=== PATIENT | female | born 1945 | race Caucasian/White ===

== ENCOUNTER 2018-09-24 00:13 | Emergency (ER) | payer OTHER ==
[2018-09-24 00:36] VITALS: BP 159/81; PULSE 83; TEMP 98.4; BMI 25.4
--- NOTE | 2018-09-24 01:00 | PDOC ---
History of Present Illness - General Chief Complaint: Wound Stated Complaint: LEFT LEG PAIN Time Seen by Provider: 09/24/18 00:37 - History of Present Illness Initial Comments: 09/24/18 01:00 The patient is a 72 year old female with a history of arthritis, HTN, HLD, Varicose veins who presents for evaluation of bleeding to the left lower extremity. The patient is accompanied by family who assist in providing the history. They note that the patient was taking off her compression stockings this evening when she experienced a skin tear to a varicose vein and it began bleeding. They put a compression dressing on the wound and elevated the patient 's leg prior to presenting to the ED for further evaluation. She otherwise denies lightheadedness, fevers, chills, SOB, chest pain, nausea, vomiting, abdominal pain, or changes with urination or bowel movements. Past History - Suicide/Smoking/Psychosocial Hx Smoking History: Unknown if ever smoked Hx Alcohol Use: No Drug/Substance Use Hx: No Review of Systems - Review of Systems Comments:: 09/24/18 01:03 Constitutional: No fevers, chills, fatigue, malaise HEENT: No Rhinorrhea, nasal congestion, visual changes Cardiovascular: No chest pain, syncope, palpitations, lightheadedness Respiratory: No Cough, SOB, Hemoptysis, Gastrointestinal: No Abdominal pain, Nausea, Vomiting, Constipation, Diarrhea, Melena Genitourinary: No Dysuria, Frequency, Urgency, Hesitancy, Hematuria, Flank pain Musculoskeletal: No Myalgia, arthralgia Skin: Bleeding varicose vein. No rashes, itching, bruising, pallor Neurologic: No Headache, Dizziness, Numbness, Weakness, or Tingling Psychiatric: No Hallucinations. No SI or HI *Physical Exam - Vital Signs Last Vital Signs Temp Pulse Resp BP Pulse Ox 98.4 F 83 20 159/81 99 09/24/18 00:32 09/24/18 00:32 09/24/18 00:32 09/24/18 00:32 09/24/18 00:32 - Physical Exam Comments: 09/24/18 01:04 General Appearance: Nourished. No Apparent Distress HEENT: No Pharyngeal Erythema, Tonsillar Exudate, Tonsillar Erythema Neck: No Cervical Lymphadenopathy Respiratory/Chest: Lungs Clear, Normal Breath Sounds. No Crackles, Rales, Rhonchi, Wheezing Cardiovascular: Regular Rhythm, Regular Rate. No Murmur, Gallops, Rubs Gastrointestinal/Abdominal: Normal Bowel Sounds, Soft. No Guarding, Rebound, Tenderness Musculoskeletal: No CVA Tenderness Extremity: Clotted varicose vein with no active bleeding noted. Normal Capillary Refill Integumentary: Normal Color, Dry, Warm Neurologic: Fully Oriented, Alert, Normal Mood/Affect, Normal Response, Medical Decision Making - Medical Decision Making 09/24/18 01:07 The patient is a 72 year old female with a history of arthritis, HTN, HLD, Varicose veins who presents for evaluation of bleeding to the left lower extremity. Given the patient's history and physical exam, her symptoms were due to a bleeding varicose vein from a skin tear. Hemostasis was obtained in the ED. The patient appears clinically well on exam. A nonstick dressing was applied with compression. We are comfortable discharging the patient home in stable condition. Patient and family made aware of impression and plan, return precautions discussed including but not limited to worsening pain or symptoms, fevers, or signs of infection, chest pain, respiratory distress, inability to tolerate oral intake, dehydration, syncope, or neurologic changes. The patient is to follow up with PMD as recommended within 1 week, follow up information provided and the patient will call for an appointment. The patient is to take medications as instructed for duration of time and continue with supportive care , avoid triggers and precipitants. Patient is safe for outpatient follow-up. *DC/Admit/Observation/Transfer Diagnosis at time of Disposition: Bleeding from varicose vein - Discharge Dispostion Disposition: HOME Condition at time of disposition: Stable Decision to Admit order: No - Referrals - Patient Instructions Printed Discharge Instructions: DI for Varicose Veins Additional Instructions: 1) Please follow-up with your primary care doctor in the next 2-3 days. Please call tomorrow to schedule a follow up appointment. If you cannot follow up with your doctor within 1 week please return to the Emergency Department for any urgent issues. 2) If you have any worsening of symptoms or any other concerns please return to the ER immediately. Return if worsening symptoms including fevers, headache, vomiting, visual or hearing disturbances, abdominal pain, chest pain, shortness of breath, syncope, dehydration, inability to take things by mouth/vomiting, altered mental status, or worsening concerning symptoms. 3) Please continue taking your home medications as directed. Side effects may include upset stomach, abdominal pain, vomiting, or diarrhea. - Post Discharge Activity
--- NOTE | 2018-09-24 01:04 | PDOC ---
Documentation entered by Fercho Ho SCRIBE, acting as scribe for Breanna Monae MD. Breanna Monae MD: This documentation has been prepared by the scribe, Fercho Ho SCRIBE, under my direction and personally reviewed by me in its entirety. I confirm that the documentation accurately reflects all work, treatment, procedures, and medical decision making performed by me. Attending Attestation - Resident Resident Name: Des Lu - ED Attending Attestation I have performed the following: I have examined & evaluated the patient, The case was reviewed & discussed with the resident, I agree w/resident's findings & plan, Exceptions are as noted - Physicial Exam PE: GENERAL: Awake, alert, and fully oriented, in no acute distress HEAD: No signs of trauma EYES: PERRLA, EOMI, sclera anicteric, conjunctiva clear ENT: Auricles normal inspection, hearing grossly normal, nares patent, oropharynx clear without exudates. Moist mucosa NECK: Normal ROM, supple, no lymphadenopathy, JVD, or masses LUNGS: Breath sounds equal, clear to auscultation bilaterally. No wheezes, and no crackles HEART: Regular rate and rhythm, normal S1 and S2, no murmurs, rubs or gallops ABDOMEN: Soft, nontender, normoactive bowel sounds. No guarding, no rebound. No masses EXTREMITIES: Normal range of motion, 2+ pitting edema to ankles B/L. No clubbing or cyanosis. No cords, erythema, or tenderness NEUROLOGICAL: Cranial nerves II through XII grossly intact. Normal speech, normal gait. Motor and sensation intact SKIN: Warm, Dry, normal turgor, no rashes. +Small puncture wound to L anterior ankle with small clot in place, small amt of surround fresh blood, no active bleeding. +Multiple varicose veins to BLE - Medical Decision Making Bleeding stopped with direct pressure, no longer bleeding. Compression dressing placed in ED, as the bleeding just stopped. Recommended that she not place her compression stockings tomorrow to avoid dislodging the clot. F/u with vascular ( she was recently given a referral by her PMD).
== END 2018-09-24 01:07 | disposition home or self-care (01) ==
LOC: JER 00:13
DX: I83.891 Varicose veins of right lower extremity with other complications (principal); I10 Essential (primary) hypertension; E78.5 Hyperlipidemia, unspecified
CPT/HCPCS: 99281-25

== ENCOUNTER 2021-09-16 10:28 | Emergency (ER) | payer OTHER ==
[2021-09-16 10:39] VITALS: BP 146/86; PULSE 92; TEMP 97.6; BMI 25.4
[2021-09-16] MEDS ORDERED: KETOROLAC TROMETHAMINE 30 MG/1 ML VIAL IM ONE (11:36)
[2021-09-16] MEDS ORDERED: KETOROLAC TROMETHAMINE 30 MG/1 ML VIAL ONE (12:01)
== END 2021-09-16 14:45 | disposition home or self-care (01) ==
LOC: JERFT 10:28
PROC: 3E023GC Introduction of Other Therapeutic Substance into Muscle, Percutaneous Approach (ICD-10-PCS; principal; 2021-09-16)
DX: M54.6 Pain in thoracic spine (principal); M54.50 Low back pain, unspecified
CPT/HCPCS: 72070-TC-FY; 72100-TC-FY; 96372; 99284-25